=== PATIENT | female | born 1950 | race Two or more races ===

== ENCOUNTER 2017-10-01 13:54 | Emergency (ER) | payer MEDICARE, MEDICAID ==
[~2017-10-01] VITALS: Ht 170.2 cm; Wt 72.6 kg
[2017-10-01 14:54] LABS: Basophils # (auto) 0.1 uL; Basophils % (auto) 0.5 % (0.0-2.0); Eosinophils # (auto) 0 uL; Eosinophils % (auto) 0.3 % (0.0-7.0); Hematocrit 43.9 % (36.0-46.0); Hemoglobin 14.4 g/dL (12.2-16.2); Lymphocytes # (auto) 1.5 uL; Lymphocytes % (auto) 12.1 % (10.0-50.0); Mean Corpuscular Hemoglobin 27.9 pg (28.0-32.0); Mean Corpuscular Hgb Conc. 32.9 g/dL (32.0-36.0); Mean Corpuscular Volume 84.6 fL (80.0-100.0); Monocytes # (auto) 0.4 uL; Monocytes % (auto) 3.5 % (0.0-12.0); Neutrophils # (auto) 10.4 uL; Neutrophils % (auto) 83.6 % (37.0-80.0); Nucleated Red Blood Cells % 0.3 %; Platelet Count (auto) 289 10^3/uL (140-450); Red Blood Cells 5.19 10^6/uL (4.0-5.20); Red Cell Distribution Width 14.5 % (11.8-14.3); White Blood Cell 12.4 10^3/uL (4.4-10.8)
[2017-10-01 15:13] LABS: Alanine Aminotransferase 32 U/L (13-56); Albumin 4.2 g/dL (3.4-5.0); Alkaline Phosphatase 87 U/L (45-117); Anion Gap 10 (5-15); Aspartate Aminotransferase 26 U/L (15-37); BUN/Creatinine Ratio 23.5; Bilirubin, Total 0.6 mg/dL (0.2-1.0); Blood Urea Nitrogen 19 mg/dL (7-18); Calcium 9.1 mg/dL (8.5-10.1); Carbon Dioxide 22 mmol/L (21-32); Chloride 106 mmol/L (98-107); GFR African American 90 mL/min; GFR Non-African American 75 mL/min; Glucose 116 mg/dL (74-106); Magnesium 2.5 mg/dL (1.6-2.6); Potassium 4.1 mmol/L (3.5-5.1); Sodium 138 mmol/L (136-145); Total Protein 8.1 g/dL (6.4-8.2)
[2017-10-01 18:00] VITALS: BP 148/71
== END 2017-10-02 00:05 | disposition left against medical advice (07) ==
LOC: ER 13:54 → EDBD 13:54 → ER 10-02 00:05
DX: R53.1 Weakness (principal); M54.9 Dorsalgia, unspecified; Z53.21 Procedure and treatment not carried out due to patient leaving prior to being seen by health care provider
CPT/HCPCS: 36415; 71046; 80053; 83735; 84484; 85025; 93005

== ENCOUNTER 2017-10-31 10:40 | Emergency (ER) | payer MEDICARE, MEDICAID ==
[~2017-10-31] VITALS: Ht 170.2 cm; Wt 77.1 kg
[2017-10-31 10:48] VITALS: BP 163/83
== END 2017-10-31 12:55 | disposition home or self-care (01) ==
LOC: ER 10:40 → EDBD 10:40 → ER 12:55
DX: S00.93XA Contusion of unspecified part of head, initial encounter (principal); W19.XXXA Unspecified fall, initial encounter; Y93.89 Activity, other specified; Y99.8 Other external cause status; Y92.89 Other specified places as the place of occurrence of the external cause
CPT/HCPCS: 70450; 93005